=== PATIENT | male | born 1990 | race Caucasian/White ===

== ENCOUNTER 2017-12-05 12:25 | Emergency (ER) | payer BC ==
[2017-12-05] MEDS ORDERED: Sodium Chloride 0.9% 1,000 ML IV SCH (14:00)
--- NOTE | 2017-12-05 14:00 | EDM.PDOC ---
ED HPI GENERAL MEDICAL PROBLEM - General Chief Complaint: Upper Extremity Injury/Pain Stated Complaint: RE CK ARM Time Seen by Provider: 12/05/17 13:57 Source of Information: Reports: Patient, Family (spouse) History Limitations: Reports: No Limitations - History of Present Illness INITIAL COMMENTS - FREE TEXT/NARRATIVE: 26-year-old male presents to the ED after falling from a roof of a home last evening. Arrived in the ED about 2220 hrs. He fell on outstretched wrists and hands. He then landed head first. He suffered a laceration to his left occipital scalp. He was seen and assessed by Dr. Florian he has a headache. He didn' t sleep all night due to the severity of the pain in his right wrist. lson last evening through the ED. Laceration was repaired with cristiana left occipital scalp. CT of the head revealed no intracranial bleeding or mass effect. No skull fractures identified similarly CT of the cervical spine proved to be within normal limits. Patient states he does not have any neck pain today. He should increase swelling and pain in his left wrist however which was not x- rayed last night. Patient has a significantly displaced distal right radius that is causing numbness and tingling and pain in his left wrist due to compression of the median nerve. He arrives in the ED in a Ortho-Glass splint. Onset: Sudden Onset Date: 12/04/17 Duration: Hour(s): Location: Reports: Head, Neck, Upper Extremity, Left (Right distal radius and ulna left wrist pain), Upper Extremity, Right Quality: Reports: Ache, Throbbing Severity: Severe Improves with: Reports: None Worsens with: Reports: Movement Context: Reports: Trauma (Fell off a roof of the house late last night landing on both outstretched hands and then landing on his head and neck.) Associated Symptoms: Reports: No Other Symptoms ( No loss of consciousness) Right Arm Pain Score (Numeric/FACES): 6 - Related Data Allergies Allergy/AdvReac Type Severity Reaction Status Date / Time No Known Allergies Allergy Verified 12/05/17 13:40 Home Meds: Home Meds oxyCODONE HCl/Acetaminophen [Percocet 5-325 mg Tablet] 1 - 2 each PO Q4H PRN # 30 tablet 12/05/17 [Rx] Past Medical History Musculoskeletal History: Reports: Fracture, Other (See Below) Other Musculoskeletal History: ankle surgery Psychiatric History: Reports: ADHD - Past Surgical History HEENT Surgical History: Reports: Oral Surgery Social & Family History - Caffeine Use Caffeine Use: Reports: None - Living Situation & Occupation Living situation: Reports: Single Occupation: Employed Review of Systems - Review of Systems Review Of Systems: See Below Constitutional: Reports: No Symptoms Eyes: Reports: No Symptoms Ears: Reports: No Symptoms Nose: Reports: No Symptoms Mouth/Throat: Reports: No Symptoms Respiratory: Reports: No Symptoms Cardiovascular: Reports: No Symptoms GI/Abdominal: Reports: No Symptoms Genitourinary: Reports: No Symptoms Musculoskeletal: Reports: Arm Pain, Other (Previous fracture left ankle requiring open reduction fixation). Denies: Neck Pain Skin: Reports: Other Neurological: Reports: No Symptoms (Laceration left occipital scalp has multiple cristiana in it from repair last night.) Psychiatric: Reports: No Symptoms ED EXAM, GENERAL - Physical Exam Exam: See Below Exam Limited By: No Limitations General Appearance: Alert, WD/WN, Moderate Distress Eye Exam: Bilateral Eye: Normal Inspection ED PROCEDURAL SEDATION - Pre Procedure Indications: fracture reduction Preparations: procedure explained, consent signed, oxygen, continuous pulse oximeter, suction, continuous personnel monitor, constant attendance - Physical Exam Airway: normal anatomy Cardiovascular: normal heart sounds Respiratory: normal breath sounds Neurological: alert Meilampati Classification: 1 (soft palate, anterior/posterior tonsillar pillars , uvula visible) - Procedure Sedation Sedation: propofol (55 mg), ketamine (64 mg) ASA Classification: 1 (Normal healthy patient) - Intra Procedure Condition during procedure: lightly sedated, oxygenation stable Complications: none Reversal: none - Post Procedure Condition after procedure: alert, NAD, responds to verbal stimuli - Discharge Condition Patient returned to pre-procedure baseline: Yes Alert prior to discharge: Yes Ambulatory with assistance: Yes Vital signs normal: Yes Time spent with sedated patient: 20 min Course - Vital Signs Last Recorded V/S: Last Vital Signs Temp 36.2 C 12/05/17 13:37 Pulse 77 12/05/17 16:40 Resp 20 12/05/17 16:40 BP 172/99 H 12/05/17 16:40 Pulse Ox 97 12/05/17 16:40 - Orders/Labs/Meds Orders: Active Orders 24 hr Category Date Time Status Wrist 2V Rt [CR] Stat Exams 12/05/17 15:52 Taken Sodium Chloride 0.9% [Normal Saline] 1,000 ml Med 12/05/17 14:00 Active IV ASDIRECTED Medication Orders Sodium Chloride (Normal Saline) 1,000 mls @ 150 mls/hr IV ASDIRECTED RENETTA Last Admin: 12/05/17 15:05 Dose: 150 mls/hr Labs: Laboratory Tests 12/05/17 12/05/17 Range/Units 14:55 14:55 WBC 10.45 H (4.23-9.07) K/mm3 RBC 5.06 (4.63-6.08) M/mm3 Hgb 14.8 (13.7-17.5) gm/L Hct 42.2 (40.1-51.0) % MCV 83.4 (79.0-92.2) fl MCH 29.2 (25.7-32.2) pg MCHC 35.1 (32.2-35.5) g/dl RDW Std Deviation 40.3 (35.1-43.9) fL Plt Count 239 (163-337) K/mm3 MPV 9.8 (9.4-12.3) fl Neutrophils % (Manual) 78 H (40-60) % Band Neutrophils % 0 (0-10) % Lymphocytes % (Manual) 15 L (20-40) % Atypical Lymphs % 0 % Monocytes % (Manual) 7 (2-10) % Eosinophils % (Manual) 0 L (0.8-7.0) % Basophils % (Manual) 0 L (0.2-1.2) Platelet Estimate Adequate Plt Morphology Comment Normal RBC Morph Comment Normal Sodium 141 (136-145) mEq/L Potassium 3.7 (3.5-5.1) mEq/L Chloride 105 (98-107) mEq/L Carbon Dioxide 24 (21-32) mEq/L Anion Gap 15.7 H (5-15) BUN 12 (7-18) mg/dL Creatinine 1.2 (0.7-1.3) mg/dL Est Cr Clr Drug Dosing 96.32 mL/min Estimated GFR (MDRD) > 60 (>60) mL/min BUN/Creatinine Ratio 10.0 L (14-18) Glucose 98 (74-106) mg/dL Calcium 8.7 (8.5-10.1) mg/dL Total Bilirubin 0.7 (0.2-1.0) mg/dL AST 30 (15-37) U/L ALT 28 (16-63) U/L Alkaline Phosphatase 86 (46-116) U/L Total Protein 7.2 (6.4-8.2) g/dl Albumin 4.2 (3.4-5.0) g/dl Globulin 3.0 gm/dL Albumin/Globulin Ratio 1.4 (1-2) Meds: Medications Generic Name Dose Route Start Last Admin Trade Name Frehiral PRN Reason Stop Dose Admin Sodium Chloride 1,000 mls @ 150 mls/hr 12/05/17 14:00 12/05/17 15:05 Normal Saline IV 150 mls/hr ASDIRECTED RENETTA Administration Discontinued Medications Generic Name Dose Route Start Last Admin Trade Name Veronica PRN Reason Stop Dose Admin Fentanyl Confirm 12/05/17 15:40 12/05/17 15:54 Sublimaze Administered 12/05/17 15:41 Not Given Dose 100 mcg .ROUTE .STK-MED ONE Fentanyl 50 mcg 12/05/17 15:44 12/05/17 15:54 Sublimaze IVPUSH 12/05/17 15:45 50 mcg ONETIME ONE Administration Hydromorphone HCl 1 mg 12/05/17 16:32 12/05/17 16:36 Dilaudid IVPUSH 12/05/17 16:33 1 mg ONETIME ONE Administration Hydromorphone HCl Confirm 12/05/17 16:34 12/05/17 16:39 Dilaudid Administered 12/05/17 16:35 Not Given Dose 1 mg .ROUTE .STK-MED ONE Ketamine HCl 67 mg 12/05/17 15:43 12/05/17 15:53 Ketalar IV 12/05/17 15:44 67 mg ONETIME ONE Administration Oxycodone/Acetaminophen 1 tab 12/05/17 16:55 12/05/17 17:00 Percocet 325-5 Mg PO 12/05/17 16:56 1 tab ONETIME ONE Administration Propofol 55 mg 12/05/17 15:52 12/05/17 15:53 Diprivan 20 Ml IVPUSH 12/05/17 15:53 55 mg ONETIME ONE Administration - Radiology Interpretation Free Text/Narrative:: 26-year-old male returns the ED due to severe pain distal right wrist. Patient fell from a roof last evening and landed on outstretched hands and his head. He had CT of his head performed which would proved to be within normal limits. He had cristiana placed in a 6 cm laceration across his left occipital scalp. Cervical spine proved to be normal. X-ray of the right wrist revealed a severe fracture dislocation of the distal radius. The ulnar styloid process appears to be previously fractured and missing. Fracture of the scaphoid bone as well. Today he is having increased pain and swelling dorsal left wrist as well. He was to follow-up with Dr. White orthopedic surgeon today who was in the operating room. Dr. White today and asked the patient to return to the ED for management of his fracture. Winkler will be for me to provide anesthetic and Dr. Chamorro to perform the procedure. X-rays of his left wrist were obtained today and reveal a suspicious fracture through the waist of the left scaphoid bone. There is some sclerosis at the fracture site suggesting this may be old. At any rate he will be placed in a thumb spica splint until further x-rays can be obtained in 10 days' time. - Re-Assessments/Exams Free Text/Narrative Re-Assessment/Exam: 12/05/17 16:01 Dr White performed the reduction of the distal radius on the right side under conscious sedation. I provided the conscious sedation. Patient received a total of 64 mg of ketamine IV with 55 mg of propofol. Postreduction x -rays reveal return to satisfactory anatomical position Powerade still going to require surgical repair. Plan patient plans on traveling to [facility] where his mother will resides. He will follow-up with orthopedic surgeons there. I will have disc made of his fractures. Tentatively he'll be discharged home on Percocet tabs 5/325 milligrams strength one or 2 every 4-6 hours needed for pain relief 30 tabs. 12/05/17 17:17 he is doing very well and will be discharged to home. He plans to travel probably to [facility] tomorrow for definitive orthopedic surgical management within the next day or 2. Departure - Departure Time of Disposition: 17:17 Disposition: Home, Self-Care 01 Condition: Fair Clinical Impression: Fracture of scaphoid bone of left wrist Qualifiers: Encounter type: initial encounter Scaphoid bone location: middle third Fracture type: closed Fracture alignment: nondisplaced Qualified Code(s): S62.025A - Nondisplaced fracture of middle third of navicular [scaphoid] bone of left wrist, initial encounter for closed fracture Fracture of radius, distal, right, closed Qualifiers: Encounter type: initial encounter Fracture morphology: Colles' Qualified Code(s ): S52.531A - Colles' fracture of right radius, initial encounter for closed fracture Closed fracture of radius Qualifiers: Encounter type: initial encounter Radius location: distal Fracture morphology: Colles' Laterality: right Qualified Code(s): S52.531A - Colles' fracture of right radius, initial encounter for closed fracture Fracture of scaphoid bone of right wrist Qualifiers: Encounter type: initial encounter Scaphoid bone location: middle third - Discharge Information *PRESCRIPTION DRUG MONITORING PROGRAM REVIEWED*: Not Applicable *COPY OF PRESCRIPTION DRUG MONITORING REPORT IN PATIENT BOB: Not Applicable Prescriptions: oxyCODONE HCl/Acetaminophen [Percocet 5-325 mg Tablet] 1 - 2 each PO Q4H PRN # 30 tablet PRN Reason: pain relief. Referrals: PCP,None [Primary Care Provider] - Forms: ED Department Discharge Additional Instructions: Evaluation in the emergency him today in regards to severely displaced distal radius fracture on the right side. This occurred late last evening when you fell from a roof top. He landed on outstretched hands and x-rays of the left wrist today reveal a suspect fracture through the waist of the left navicular bone or scaphoid bone. You're therefore placed in a splint in this regard. Some suggestion this fracture may be old but you have associated swelling in this area that is highly suspect for new fracture. X-rays of this area will have to be repeated in 10 days' time to confirm whether or not there's been a new fracture. You underwent close reduction of the distal radius on the right side today by Dr. White orthopedic surgeon under conscious sedation. You are still going to need to follow-up with an orthopedic surgeon in [facility] where you have decided to seek care. He will require surgery to repair the distal radius on the right side. At present you are in a sugar tong Ortho-Glass splint that is to remain in place until follow-up with orthopedic surgeon in [facility]. Elevate the hand above level of heart is much as possible for the next 3 days. Ice pack post can still be applied over the splint for one half hour out of every 4 hours for the next 2 days. The medication is to be Percocet tabs 5/325 mg tabs one or 2 every 4-6 hours as needed for pain relief. Since you're going to need pain medication for greater than a week. I would suggest purchasing MiraLAX powder taking 1 scoop or 17 g daily to prevent constipation that occurs very often from the pain medications. Of course follow-up with orthopedic surgeon in [facility] as soon as possible for definitive surgical repair. Wrist. It has to be fixed within the 10 day period of time from time of injury. - My Orders Last 24 Hours: My Active Orders 12/05/17 14:00 Sodium Chloride 0.9% [Normal Saline] 1,000 ml IV ASDIRECTED 12/05/17 15:52 Wrist 2V Rt [CR] Stat - Assessment/Plan Last 24 Hours: My Active Orders 12/05/17 14:00 Sodium Chloride 0.9% [Normal Saline] 1,000 ml IV ASDIRECTED 12/05/17 15:52 Wrist 2V Rt [CR] Stat
--- NOTE | 2017-12-05 14:41 | CR ---
Left wrist: Four views of the left wrist were obtained. Comparison: No previous study. Soft tissue swelling is noted. Navicular fracture is seen through the mid pole. No additional fracture or other bony abnormality is seen. Impression: 1. Navicular fracture and soft tissue swelling. Diagnostic code #3
--- NOTE | 2017-12-05 14:52 | PCM.PREANE ---
Preanesthetic Assessment - Anesthesia/Transfusion/Family Hx Anesthesia History: Prior Anesthesia Without Reaction Family History of Anesthesia Reaction: No Transfusion History: No Prior Transfusion(s) - Review of Systems General: No Symptoms, Other (ETOH on occasion. had used ETOH last night and fell off roof to ER for examination, 10 cristiana to posterior head and fx right wrist) Pulmonary: No Symptoms, Other (using chewing tobacco, last today at 1015) Cardiovascular: No Symptoms Gastrointestinal: No Symptoms Neurological: No Symptoms Other: Reports: None - Physical Assessment NPO Status Date: 12/05/17 NPO Status Time: 10:00 O2 Sat by Pulse Oximetry: 97 Respiratory Rate: 17 Vital Signs: Last Vital Signs Temp 36.2 C 12/05/17 13:37 Pulse 63 12/05/17 13:37 Resp 17 12/05/17 13:37 BP 148/95 H 12/05/17 13:37 Pulse Ox 97 12/05/17 13:37 Height: 1.78 m Weight: 83.915 kg ASA Class: 2 Mental Status: Alert & Oriented x3 Airway Class: Mallampati = 1 Dentition: Reports: Normal Dentition Thyro-Mental Finger Breadths: 3 Mouth Opening Finger Breadths: 3 ROM/Head Extension: Full Lungs: Clear to Auscultation, Normal Respiratory Effort Cardiovascular: Regular Rate, Regular Rhythm - Allergies Allergies/Adverse Reactions: Allergies Allergy/AdvReac Type Severity Reaction Status Date / Time No Known Allergies Allergy Verified 12/05/17 13:40 - Blood Blood Available: No Product(s) Available: None - Anesthesia Plan Pre-Op Medication Ordered: None - Acknowledgements Anesthesia Type Planned: MAC Pt an Appropriate Candidate for the Planned Anesthesia: Yes Alternatives and Risks of Anesthesia Discussed w Pt/Guardian: Yes Pt/Guardian Understands and Agrees with Anesthesia Plan: Yes PreAnesthesia Questionnaire Musculoskeletal History: Reports: Fracture, Other (See Below) Other Musculoskeletal History: ankle surgery Psychiatric History: Reports: ADHD - Past Surgical History HEENT Surgical History: Reports: Oral Surgery - HOME MEDS Home Medications: Home Meds . [No Known Home Meds] 12/05/17 [History] - CURRENT (IN HOUSE) MEDS Current Meds: Current Medications Sodium Chloride (Normal Saline) 1,000 mls @ 150 mls/hr IV ASDIRECTED [facility]
[2017-12-05] MEDS ORDERED: fentaNYL 100 MCG/2 ML SDV ONE (15:40)
[2017-12-05] MEDS ORDERED: Ketamine 500 mg/10 ML MDV IV ONE (15:43)
[2017-12-05] MEDS ORDERED: fentaNYL 100 MCG/2 ML SDV IVPUSH ONE (15:44)
[2017-12-05] MEDS ORDERED: Propofol 200 MG/20 ML SDV IVPUSH ONE (15:52)
[2017-12-05] MEDS ORDERED: HYDROmorphone 1 MG/ML Syringe IVPUSH ONE (16:32)
[2017-12-05] MEDS ORDERED: HYDROmorphone 1 MG/ML Syringe ONE (16:34)
[2017-12-05] MEDS ORDERED: Acetaminophen/oxyCODONE 325-5 MG Tab PO ONE (16:55)
--- NOTE | 2017-12-06 06:47 | CR ---
Right wrist: Three views of the right wrist were obtained. Comparison: Previous right wrist study of 12/04/17. Significantly improved alignment is noted of distal radial fracture seen on prior exam. Alignment is now close to anatomic. Small ulnar styloid avulsion fracture is noted. Navicular fracture is again noted. Plaster cast is present. No additional bony abnormality is seen through the cast. Impression: 1. Significantly improved alignment of previous distal radial fracture as noted above. 2. Ulnar styloid avulsion fracture and navicular fracture is again noted. 3. Cast is in place. Diagnostic code #2
--- NOTE | 2017-12-07 09:24 | OR ---
DATE OF OPERATION: 12/05/2017 SURGEON: Felipe White MD PREOPERATIVE DIAGNOSIS: Right distal radius fracture with right scaphoid fracture and left scaphoid fracture. POSTOPERATIVE DIAGNOSIS: Right distal radius fracture with right scaphoid fracture and left scaphoid fracture. OPERATION PERFORMED: Closed reduction with splinting of displaced right distal radial and ulnar styloid fracture. HEATING ELEMENT BUILDER: None. COMPLICATIONS: None. CONDITION: Stable. ESTIMATED BLOOD LOSS: Not applicable. DESCRIPTION OF PROCEDURE: The patient was identified in the [facility]. Proper site was marked and identified. Time-out was performed. Informed consent was obtained. At this time after adequate sedation, a closed reduction maneuver was done to the right distal radius. At this time, it was felt to be completely reduced. Sugar-tong splint covering the thumb was then done around the elbow and was molded with 3- point pressure to correct the previous deformity. Once this had set up, PA and lateral view was obtained of the right wrist and was found to have almost near anatomic reduction of the previous right distal radius fracture. The patient was counseled to seek followup for both his scaphoid fractures as well as his right distal radius fracture in [place] as that is where he is going to be headed too as I did discuss secondary to the bilateral nature. The patient may need further surgical intervention on all 3. ANESTHESIA: MAC MMODAL /[id number] MTDVikki
--- NOTE | 2017-12-07 12:37 | CONS ---
CONSULTING PHYSICIAN: Felipe White MD DATE OF CONSULTATION: 12/05/2017 SUBJECTIVE: This is a 26-year-old [id number] male, who on 12/04/2017 fell off a roof and landed on bilateral outstretched upper extremities. The patient subsequently was seen in the emergency department where he was found to have a right distal radius fracture as well as right scaphoid fracture. The patient subsequently did have to return secondary to increased pain of the right distal radius fracture as it was not fully reduced at the previous visit. The patient subsequently has had some numbness and tingling as well in his right upper extremity, and he does state that he has left wrist pain at today's visit as well. PHYSICAL EXAMINATION: GENERAL: Alert, in no acute distress. VITAL SIGNS: Stable. Afebrile. EXTREMITIES: On examination, the patient is noted to have severe deformity noted to the right distal radius. The skin is intact. There is no erythema or warmth. He does have paresthesias noted in the median nerve distribution, but he is able to flex and extend the IP joint of the thumb, abduct and adduct his fingers, oppose thumb and small digit. He has tenderness to palpation over the anatomic snuffbox as well as over the right distal radius over the deformity. He has no elbow pain. No shoulder pain. The left upper extremity, he is able to move the extremity at all joints including his wrist, but he does have left wrist pain. There is minor amount of swelling. He does have significant anatomic snuffbox tenderness. He is otherwise neurovascularly intact to radial and median nerve distribution with 2+ distal radial pulse bilaterally. Lower extremities were examined, but the patient has no issues or pain through the lower extremities. RADIOGRAPHS: Radiographs reviewed of the right upper extremity showing a severely displaced right distal radius fracture as well as waist scaphoid fractures bilaterally. ASSESSMENT: 1. Bilateral waist scaphoid fractures. 2. Right distal radius fracture. PLAN: At this time, I did discuss with the patient the possibility of chronicity of his scaphoid fractures as they do show some sclerosis. It appears on x-ray, but it could be just the angle at this time and would recommend dedicated scaphoid views at his followup. The patient at this time does not, however, remember hurting his wrist that bad, and the mechanism does fit the injuries. At this time, I did discuss with the patient as far as his left upper extremity, we will place him in a removable Velcro thumb spica that he is to keep on almost at all times and follow up when he goes to [place] as the patient did state he is going to have surgery in [place] if it does require surgical intervention. At this time, I did discuss the risks, benefits, complications, and alternatives to close reduction of the right distal radius with splinting, and he is in agreement with this plan. We will plan on doing a closed reduction and splinting of the right distal radius as well as the Velcro splint for the left upper extremity for the scaphoid fracture. The patient is to follow up secondary to the bilateral nature, will probably require surgical intervention in the near future on these fractures. The patient is in agreement with this plan and will undergo a closed reduction today. NUHA /[id number]
== END 2017-12-05 18:00 | disposition home or self-care (01) ==
LOC: JD.ED 12:25
DX: S52.531A Colles' fracture of right radius, initial encounter for closed fracture (principal); S62.021A Displaced fracture of middle third of navicular [scaphoid] bone of right wrist, initial encounter for closed fracture; S62.025A Nondisplaced fracture of middle third of navicular [scaphoid] bone of left wrist, initial encounter for closed fracture; W13.2XXA Fall from, out of or through roof, initial encounter
CPT/HCPCS: 25565; 36415; 73100; 73110; 80053; 85007; 85027; 96361; 96374; 96375; 99152; 99284; A9270; J1170; J2704; J3010; J7040; 29105